=== PATIENT | male | born 1975 | race Caucasian/White ===

== ENCOUNTER 2024-09-05 15:21 | Emergency (ER) | payer SELFPAY ==
--- NOTE | 2024-09-05 15:56 | RAD REPORT ---
EXAM: Chest Single View HISTORY: 48 years Male DYSPNEA COMPARISON: None. FINDINGS: LUNGS/PLEURA: Presumed large left pleural effusion with rightward mediastinal shift. Only a small por tion of the left lung is aerated. The right lung is clear. CARDIAC/MEDIASTINUM: Partially obscured. UPPER ABDOMEN: No significant abnormality. BONES: No acute abnormality. LINES/TUBES/OTHER: N/A IMPRESSION: Whiteout of much of the left lung likely due to a large pleural effusion with mediastinal shift. Some aerated lung is present at the left lung apex. A chest CT is pending.
[2024-09-05] MEDS ORDERED: NA CHLORIDE 0.9% 1,000 ML ONE ×2 (16:10→17:40)
[2024-09-05 16:17] LABS: Absolute Basophils 0.1 K/uL (0-0.5); Absolute Lymphocytes (CBC) 1.8 K/uL (0.7-4.9); Absolute Monocytes 0.8 K/uL (0.1-1.3); Absolute Neutrophil 11.2 K/uL (1.8-8.0); Basophils % 0.7 % (0-1.3); Hematocrit 30.6 % (39.6-49.0); Lymphocytes % 13.3 % (15.3-44.8); MCH 25.5 pg (27.0-35.0); MCHC 32.6 g/dL (32.0-36.0); MCV 78.5 fL (80-100); MPV 6.5 fL (7.6-11.3); Monocytes % 5.8 % (3.3-12.3); Neutrophils % 80.2 % (41.7-73.7); Platelets 644 thou/uL (152-406); Red Cell Distribution Width 15.2 % (12.1-15.2)
[2024-09-05 16:26] LABS: PT Prothrombin Time 18.8 SECONDS (10-13.0); Protime INR 1.69
[2024-09-05 16:34] LABS: ALT/SGPT 36 U/L (16-61); AST/SGOT 27 U/L (15-37); Albumin/Globulin Ratio 0.3 (1.1-1.8); Alkaline Phosphatase 68 U/L (45-117); Anion Gap 10.3 mEq/L (5.0-15.0); BUN Blood Urea Nitrogen 8 mg/dL (7-18); Bicarbonate 29 mEq/L (21-32); Bilirubin Direct 0.4 mg/dL (0-0.2); Bilirubin Indirect, Calculated 0.4 mg/dL (0.2-0.8); Bilirubin Total 0.8 mg/dL (0.2-1.0); Glomerular Filtration Rate 107 ml/min (=/>90); Glucose Level 161 mg/dL (74-106); Magnesium 2.2 mg/dL (1.6-2.4); NT PRO-BNP 299 pg/mL (<125); Potassium 3.3 mEq/L (3.5-5.1); Sodium Level 130 mEq/L (136-145)
[2024-09-05 16:35] LABS: Troponin High Sensitivity < 3.0 pg/mL (<58.9)
[2024-09-05 16:36] LABS: Influenza A Ag Negative; Influenza B Ag Negative; SARS-CoV-2 Antigen Rapid Res Negative (Negative)
--- NOTE | 2024-09-05 17:28 | RAD REPORT ---
Thorax W/ Con CLINICAL INDICATION: Male, 48 years old. SOB TECHNIQUE: Routine CT scan of the chest with intravenous contrast. One or more of the following dose reduction techniques were used: Automated exposure control, adjustment of the mA and/or kV according to patient size, and/or iterative reconstruction. Unless otherwise specified, incidental fi ndings do not require dedicated imaging follow-up. [id number]. COMPARISON: No prior exam. FINDINGS: LOWER NECK: Visualized thyroid gland and soft tissues are normal. LUNGS AND AIRWAYS: Much of the left lower lobe is atelectatic secondary to a complex presumably locul ated pleural effusion..No suspicious and/or stable pulmonary nodules. PLEURA: No pleural effusions. No pneumothorax. MEDIASTINUM AND LYMPH NODES: There is rightward shift of the mediastinum. THORACIC AORTA: No thoracic aortic aneurysm. PULMONARY ARTERIES: Caliber is within normal limits. HEART: Normal heart size. No coronary calcifications.Small pericardial effusion. OSSEOUS STRUCTURES AND CHEST WALL: No fracture or suspicious osseous lesions. UPPER ABDOMEN: No acute abnormalities.Cholelithiasis. Hepatic steatosis. IMPRESSION: Large loculated left pleural effusion with collapse of much of the left lower lobe. This may reflect a parapneumonic effusion and/or empyema.
--- NOTE | 2024-09-05 18:01 | EDPHYS ---
Physician Documentation [facility] Name: Efrain Villalpando Age: 48 yrs Sex: Male : 1975 Arrival Date: 09/05/2024 Time: 15:21 Bed 4 Private MD: ED Physician Los Reynaga HPI: 09/05 15:45 This 48 yrs old Male presents to ER via Wheelchair with complaints of Breathing cp Difficulty, Cough. 15:45 The patient has shortness of breath at rest. Onset: The symptoms/episode began/occurred cp gradually, 1 month(s) ago. Duration: The symptoms are continuous, and are steadily getting worse. Associated signs and symptoms: Pertinent positives: chest pain, non-productive cough, weight loss, Pertinent negatives: fever. Historical: - Allergies: 15:46 No Known Allergies; jb4 - PMHx: 15:46 None; jb4 - PSHx: 15:46 None; jb4 - Immunization history:: Adult Immunizations up to date. - Infectious Disease History:: Denies. - Social history:: Smoking status: Patient denies any tobacco usage or history of. Patient uses alcohol, but reports only rare drinking. ROS: 15:50 Constitutional: Positive for chills, weight loss, Negative for body aches, fever, cp 15:50 Eyes: Negative for injury, pain, redness, and discharge, cp 15:50 ENT: Negative for drainage from ear(s), ear pain, sore throat, difficulty swallowing, difficulty handling secretions, 15:50 Cardiovascular: Positive for chest pain, palpitations, Negative for edema, 15:50 Respiratory: Positive for cough, "sounds productive", shortness of breath, at rest. 15:50 Abdomen/GI: Negative for abdominal pain, vomiting, diarrhea, constipation, 15:50 Neuro: Negative for altered mental status, dizziness, headache, numbness, syncope, near syncope, weakness, 15:50 All other systems are negative, Exam: 15:55 Constitutional: The patient appears in no acute distress, alert, awake, cp non-diaphoretic, non-toxic, well developed, well nourished, uncomfortable, 15:55 Head/Face: Normocephalic, atraumatic. cp 15:55 Eyes: Periorbital structures: appear normal, Conjunctiva: normal, no exudate, no injection, Sclera: no appreciated abnormality, Lids and lashes: appear normal, bilaterally, 15:55 ENT: External ear(s): are unremarkable, Nose: is normal, Mouth: Lips: moist, Oral mucosa: moist, Posterior pharynx: Airway: no evidence of obstruction, patent, 15:55 Neck: ROM/movement: limited range of motion, is not appreciated, Meningeal signs: are not present, 15:55 Chest/axilla: Inspection: normal, Palpation: crepitus, is not appreciated, tenderness, that is mild, of the left lateral anterior chest and left lateral posterior chest, 15:55 Cardiovascular: Rate: tachycardic, Rhythm: regular, Edema: is not appreciated, JVD: is not appreciated, 15:55 Respiratory: the patient does not display signs of respiratory distress, Respirations: labored breathing, that is mild, shallow respirations, that is mild, Breath sounds: decreased breath sounds, that are severe, are heard in the left posterior upper lobe and left posterior lower lobe, stridor, is not appreciated, wheezing: is not appreciated, 15:55 Abdomen/GI: Inspection: abdomen appears normal, Palpation: abdomen is soft and non-tender, in all quadrants, 15:55 Back: pain, that is moderate, of the left scapular area and left subscapular area, ROM is normal, 15:55 Skin: no rash present. 15:55 Neuro: Orientation: to person, place \\T\\ time. Mentation: is normal, Motor: moves all fours, strength is normal, Sensation: is normal, 16:30 ECG was reviewed by the Attending Physician. cp Vital Signs: 15:44 BP 130 / 84; Pulse 138; Resp 36; Temp 99.2(O); Pulse Ox 98% on R/A; Weight 92.08 kg jb4 (R); Height 6 ft. 0 in. (R); Pain 4/10; 17:34 BP 114 / 74; Pulse 123; Resp 36; Pulse Ox 96% on R/A; jb4 18:52 BP 123 / 77; Pulse 123; Resp 21; Pulse Ox 97% on R/A; hb 20:17 BP 105 / 71; Pulse 117; Resp 26; Pulse Ox 100% on 2 lpm NC; cp4 20:52 BP 109 / 72; Pulse 115; Resp 23; Pulse Ox 97% on 2 lpm NC; cp4 21:36 BP 110 / 77; Pulse 115; Resp 21; Pulse Ox 99% on 2 lpm NC; cp4 15:44 Body Mass Index 27.53 (92.08 kg, 182.88 cm) jb4 15:44 Pain Scale: Adult jb4 MDM: 15:37 Medical Screening Exam initiated cp 16:00 Differential diagnosis: Chronic Obstructive Pulmonary Disease pneumonia, Pneumothorax cp pulmonary edema, Pulmonary Embolism Sepsis. 18:00 Data reviewed: vital signs, nurses notes, lab test result(s), EKG, radiologic studies, cp CT scan, plain films, I have discussed the patient's presentation/case with the attending Emergency Department Physician; and as a result, I will transfer patient. 18:00 Antibiotic administration: Zosyn. cp 18:45 ED course: consult with DR Brown, [facility], will be accepting physician. 19:33 Management of patient was discussed with the following: Brood Station Manager: DR Bolivar who sees cp patient in ED for placement of chest tube. 09/05 15:38 Order name: Basic Metabolic Panel; Complete Time: 16:56 09/05 17:18 Interpretation: Normal except: NA 130; K 3.3; CL 94; GLUC 161; CA 7.9. 09/05 15:38 Order name: CBC with Diff; Complete Time: 16:31 09/05 17:18 Interpretation: Normal except: WBC 13.90; RBC 3.90; HGB 10.0; HCT 30.6; MCV 78.5; MCH cp 25.5; PLT 644; MPV 6.5; CJ% 80.2; LYM% 13.3; NEUT A 11.2. 09/05 15:38 Order name: LFT's; Complete Time: 16:56 09/05 17:18 Interpretation: Normal except: BILID 0.4; ALB 2.0; GLOB 6.0; A/G 0.3. 09/05 15:38 Order name: Magnesium; Complete Time: 16:56 cp 09/05 15:38 Order name: NT PRO-BNP; Complete Time: 16:56 09/05 18:40 Interpretation: Reviewed. 09/05 15:38 Order name: PT-INR; Complete Time: 16:31 09/05 18:41 Interpretation: Reviewed. cp 09/05 15:38 Order name: Troponin HS; Complete Time: 16:56 cp 09/05 18:40 Interpretation: Reviewed. cp 09/05 15:38 Order name: COVID-19 Ag + Flu A+B Ag; Complete Time: 16:56 cp 09/05 18:41 Interpretation: Reviewed. cp 09/05 15:39 Order name: Blood Culture Adult (2) cp 09/05 15:39 Order name: Lactate w/ 2H reflex if indic.; Complete Time: 16:56 cp 09/05 15:39 Order name: Urinalysis w/ reflexes; Complete Time: 19:04 cp 09/05 15:34 Order name: Chest Single View XRAY; Complete Time: 16:13 jl7 09/05 16:15 Order name: CT Chest W/ Con; Complete Time: 17:43 cp 09/05 18:29 Interpretation: Report reviewed. cp 09/05 19:39 Order name: Chest Single View XRAY; Complete Time: 21:40 vk 09/05 15:38 Order name: Cardiac monitoring; Complete Time: 17:34 cp 09/05 15:38 Order name: EKG - Nurse/Tech; Complete Time: 17:34 cp 09/05 15:38 Order name: IV Saline Lock; Complete Time: 16:00 cp 09/05 15:38 Order name: Labs collected and sent; Complete Time: 16:00 cp 09/05 15:38 Order name: O2 Per Protocol; Complete Time: 16:00 cp 09/05 15:38 Order name: O2 Sat Monitoring; Complete Time: 16:00 cp 09/05 15:39 Order name: Vital Signs; Complete Time: 16:00 cp EC:30 Rate is 131 beats/min. Rhythm is regular. DC interval is normal. QRS interval is cp normal. QT interval is normal. Interpreted by me. Reviewed by me. Administered Medications: 15:47 CANCELLED (Physician Discretion): DuoNeb Nebulize (2.5 mg - 0.5 mg) 3 ml Nebulizer once cp 16:13 Drug: NS 0.9% IV 1000 ml IV at 1000 ml once; to be given as a bolus over 60 minutes jb4 Route: IV; Rate: 1000 ml; Site: right antecubital; 17:15 Follow up: Response: No adverse reaction; IV Status: Completed infusion; IV Intake: jb4 1000ml 17:43 Drug: NS 0.9% IV 1000 ml IV at 1000 ml once; to be given as a bolus over 60 minutes jb4 Route: IV; Rate: 1000 ml; Site: right antecubital; 20:13 Follow up: IV Status: Completed infusion cp4 18:51 Drug: Potassium PO Effervescent Tablet 50 mEq PO once; dissolve in 4 ounces of water or hb juice Route: PO; 20:14 Follow up: Response: No adverse reaction cp4 18:51 Drug: Piperacillin-Tazobactam IVPB 3.375 grams IVPB once over 60 mins; (mix in NS 100 hb mL) Route: IVPB; Infused Over: 60 mins; Site: right antecubital; 20:13 Follow up: Response: No adverse reaction; IV Status: Completed infusion cp4 18:51 Drug: Ketorolac IVP 15 mg IVP once Route: IVP; Site: right antecubital; hb 20:14 Follow up: Response: No adverse reaction cp4 20:06 Drug: Lidocaine Infiltration (2 %) 20 ml 5 ml Infiltration once; with epinephrine cp4 {Note: Administered by Dr. Bolivar.} Volume: 5 ml; Route: Infiltration; 20:17 Drug: vancoMYCIN IVPB 1.5 grams IVPB at calculated rate once Route: IVPB; Rate: cp4 calculated rate; Site: left antecubital; 21:56 Follow up: IV Status: Infusion continued upon transfer cp4 Disposition Summary: 09/05/24 18:00 Transfer Ordered Notes: Transfer Location: [facility] cp Reason: Higher level of care cp Condition: Stable cp Problem: new cp Symptoms: have improved cp Accepting Physician: DR Brown(09/05/24 21:55) cp4 Diagnosis - Pleural effusion in other conditions classified elsewhere - left cp - Dyspnea cp Forms: - Medication Reconciliation Form cp - SBAR form cp Addendum: 09/07/2024 07:01 Co-signature as Attending Physician, Los Reynaga MD I reviewed the patient's care r n provided by the Advanced Practice Provider and agree with the diagnosis and treatment plan. Signatures: Dispatcher [employer] EDKS Los Reynaga MD MD rn Jax Mendez, MANAGER OF APPLICATIONS DEVELOPMENT-C MANAGER OF APPLICATIONS DEVELOPMENT-Cla1 Beto Malloy PA PA cp Baxter Sofía, RN RN Mike Beard, RN RN jb4 Cleopatra Marti cp4 Corrections: (The following items were deleted from the chart) 09/05 15:39 15:39 BASIC METABOLIC PANEL+C.LAB.BRZ ordered. EDMS EDMS 15:39 15:39 CBC+H.LAB.BRZ ordered. EDMS EDMS 15:39 15:39 HEPATIC FUNCTION+C.LAB.BRZ ordered. EDMS EDMS 15:39 15:39 MAGNESIUM+C.LAB.BRZ ordered. EDMS EDMS 15:39 15:39 PROBNP+C.LAB.BRZ ordered. EDMS EDMS 15:39 15:39 PROTIME (+INR)+COAG.LAB.BRZ ordered. EDMS EDMS 15:39 15:39 Troponin High Sensitivity+C.LAB.BRZ ordered. EDMS EDMS 15:39 15:39 COVID-19 Ag + Flu A+B Ag+I.LAB.BRZ ordered. EDMS EDMS 15:40 15:40 BLOOD CULTURE*+BA.LAB.BRZ ordered. EDMS EDMS 15:40 15:40 LACTATE+C.LAB.BRZ ordered. EDMS EDMS 15:40 15:40 Urinalysis+U.LAB.BRZ ordered. EDMS EDMS 15:47 15:38 DuoNeb Nebulize (2.5 mg - 0.5 mg) 3 ml Nebulizer once ordered. cp cp 16:22 15:40 Chest For PE Angio+CT.RAD.BRZ ordered. EDMS EDMS 16:59 15:39 Accucheck ordered. cp jb4 21:46 18:00 doctor cp cp 21:55 21:46 DR Brown cp cp4
--- NOTE | 2024-09-05 18:01 | ER ---
Nurse's Notes [facility] Name: Efrain Villalpando Age: 48 yrs Sex: Male : 1975 Arrival Date: 09/05/2024 Time: 15:21 Bed 4 Private MD: Diagnosis: Pleural effusion in other conditions classified elsewhere-left;Dyspnea Presentation: 09/05 15:44 Chief complaint: Patient states: I have shortness of breath and was seen at next level j[facility]4 urgent care and was sent here. Coronavirus screen: At this time, the client does not indicate any symptoms associated with coronavirus-19. Ebola Screen: No symptoms or risks identified at this time. Initial Sepsis Screen: Does the patient meet any 2 criteria? RR > 20 per min. HR > 90 bpm. Yes Does the patient have a suspected source of infection? No. Patient's initial sepsis screen is negative. Risk Assessment: Do you want to hurt yourself or someone else? Patient reports no desire to harm self or others. Onset of symptoms was September 05, 2024. Transition of care: patient was not received from another setting of care. 15:44 Method Of Arrival: Wheelchair jb4 15:44 Acuity: ASHLEY 2 jb4 Historical: - Allergies: 15:46 No Known Allergies; jb4 - PMHx: 15:46 None; jb4 - PSHx: 15:46 None; jb4 - Immunization history:: Adult Immunizations up to date. - Infectious Disease History:: Denies. - Social history:: Smoking status: Patient denies any tobacco usage or history of. Patient uses alcohol, but reports only rare drinking. Screenin:35 [facility] ED Fall Risk Assessment (Adult) History of falling in the last 3 months, cp4 including since admission No falls in past 3 months (0 pts) Confusion or Disorientation No (0 pts) Intoxicated or Sedated No (0 pts) Impaired Gait No (0 pts) Mobility Assist Device Used No (0 pt) Altered Elimination No (0 pt) Score/Fall Risk Level 0 - 2 = Low Risk Oriented to surroundings, Maintained a safe environment, Assessed \T\ reinforced patient's understanding of fall precautions, Hourly rounding (assess needs \T\ fall precautionary measures) done. Abuse screen: Denies threats or abuse. Denies injuries from another. Nutritional screening: No deficits noted. Tuberculosis screening: No symptoms or risk factors identified. Assessment: 16:00 General: Appears in no apparent distress. comfortable, Behavior is calm, cooperative, jb4 appropriate for age. Pain: Complains of pain in chest Pain does not radiate. Pain currently is 5 out of 10 on a pain scale. Neuro: Level of Consciousness is awake, alert, obeys commands, Oriented to person, place, time, situation. Cardiovascular: Patient's skin is warm and dry. Respiratory: Airway is patent Respiratory effort is even, labored, Respiratory pattern is symmetrical, tachypnea. Derm: Skin is intact, Skin is pink, warm \T\ dry. Musculoskeletal: Circulation, motion, and sensation intact. Range of motion: intact in all extremities. 17:45 Reassessment: Pt awake and alert, respirations continue to be labored, and tachypneic. jb4 Pt given ice chips per request. 18:52 Reassessment: No changes from previously documented assessment. Patient and/or family hb updated on plan of care and expected duration. Pain level reassessed. Vital Signs: 15:44 BP 130 / 84; Pulse 138; Resp 36; Temp 99.2(O); Pulse Ox 98% on R/A; Weight 92.08 kg jb4 (R); Height 6 ft. 0 in. (R); Pain 4/10; 17:34 BP 114 / 74; Pulse 123; Resp 36; Pulse Ox 96% on R/A; jb4 18:52 BP 123 / 77; Pulse 123; Resp 21; Pulse Ox 97% on R/A; hb 20:17 BP 105 / 71; Pulse 117; Resp 26; Pulse Ox 100% on 2 lpm NC; cp4 20:52 BP 109 / 72; Pulse 115; Resp 23; Pulse Ox 97% on 2 lpm NC; cp4 21:36 BP 110 / 77; Pulse 115; Resp 21; Pulse Ox 99% on 2 lpm NC; cp4 15:44 Body Mass Index 27.53 (92.08 kg, 182.88 cm) jb4 15:44 Pain Scale: Adult jb4 ED Course: 15:28 Patient arrived in ED. cj3 15:29 Beto Malloy PA is PHCP. cp 15:29 Los Reynaga MD is Attending Physician. cp 15:43 Radiology exam delayed due to lab results not completed at this time. (BUN/Creatinine) sj IV insertion attempt and/or patient not having appropriate IV at this time. 15:44 Chest Single View XRAY In Process Unspecified. EDMS 15:44 Mike Beard, RN is Primary Nurse. jb4 15:46 Triage completed. jb4 15:46 Arm band placed on right wrist. jb4 16:00 Troponin HS Sent. jb4 16:00 PT-INR Sent. jb4 16:00 NT PRO-BNP Sent. jb4 16:00 Magnesium Sent. jb4 16:00 LFT's Sent. jb4 16:00 CBC with Diff Sent. jb4 16:00 Basic Metabolic Panel Sent. jb4 16:00 Lactate w/ 2H reflex if indic. Sent. jb4 16:00 Blood Culture Adult (2) Sent. jb4 16:00 Inserted saline lock: 18 gauge in right antecubital area, using aseptic technique. jb4 Blood collected. 16:14 COVID-19 Ag + Flu A+B Ag Sent. jb4 17:14 CT Chest W/ Con In Process Unspecified. EDMS 18:51 Urinalysis w/ reflexes Sent. hb 19:56 Chest Single View XRAY In Process Unspecified. EDMS 20:18 Assist provider with chest tube insertion with 20 Fr. in left Tray was set up. Attached cp4 to pleur-[employer]. Chest tube inserted by Hector Bolivar MD Placement verified by CXR, Dressed with foam tape, Patient tolerated well. 20:20 Inserted saline lock: 20 gauge in left antecubital area, using aseptic technique. cp4 Flushed with 10 mL NS 21:35 Placed in gown. Bed in low position. Call light in reach. Side rails up X 1. Provided cp4 Education on: Procedure Consent. 21:41 initiated transfer with [facility] spoke with maverick Dacosta patient was accepted to [facility] Rm 2106 vk per transfer center to Dr. Bowen\T\[id number] report number given [phone], initiated transport with EMS patient was accepted. Administered Medications: 15:47 CANCELLED (Physician Discretion): DuoNeb Nebulize (2.5 mg - 0.5 mg) 3 ml Nebulizer once cp 16:13 Drug: NS 0.9% IV 1000 ml IV at 1000 ml once; to be given as a bolus over 60 minutes jb4 Route: IV; Rate: 1000 ml; Site: right antecubital; 17:15 Follow up: Response: No adverse reaction; IV Status: Completed infusion; IV Intake: jb4 1000ml 17:43 Drug: NS 0.9% IV 1000 ml IV at 1000 ml once; to be given as a bolus over 60 minutes jb4 Route: IV; Rate: 1000 ml; Site: right antecubital; 20:13 Follow up: IV Status: Completed infusion cp4 18:51 Drug: Potassium PO Effervescent Tablet 50 mEq PO once; dissolve in 4 ounces of water or hb juice Route: PO; 20:14 Follow up: Response: No adverse reaction cp4 18:51 Drug: Piperacillin-Tazobactam IVPB 3.375 grams IVPB once over 60 mins; (mix in NS 100 hb mL) Route: IVPB; Infused Over: 60 mins; Site: right antecubital; 20:13 Follow up: Response: No adverse reaction; IV Status: Completed infusion cp4 18:51 Drug: Ketorolac IVP 15 mg IVP once Route: IVP; Site: right antecubital; hb 20:14 Follow up: Response: No adverse reaction cp4 20:06 Drug: Lidocaine Infiltration (2 %) 20 ml 5 ml Infiltration once; with epinephrine cp4 {Note: Administered by Dr. Bolivar.} Volume: 5 ml; Route: Infiltration; 20:17 Drug: vancoMYCIN IVPB 1.5 grams IVPB at calculated rate once Route: IVPB; Rate: cp4 calculated rate; Site: left antecubital; 21:56 Follow up: IV Status: Infusion continued upon transfer cp4 Medication: 21:35 VIS not applicable for this client. cp4 Intake: 17:15 IV: 1000ml; Total: 1000ml. jb4 Outcome: 18:00 ER care complete, transfer ordered by MD. cp 21:50 Transferred by ground EMS to [facility], Transfer form completed. cp4 X-rays sent w/ patient. 21:50 Condition: stable 21:50 Instructed on the need for transfer, 21:55 Patient left the ED. cp4 Signatures: Dispatcher [employer] EDDE Mali Bourne Corey, PA PA cp Sofía Marinelli RN RN hb Bryson, James, RN RN jb4 Cleopatra Marti cp4 Chantel Barbour Celeste cj3
[2024-09-05] MEDS ORDERED: POTASSIUM 25 MEQ EFFERV TAB ONE (18:15)
[2024-09-05] MEDS ORDERED: NA CHLORIDE 0.9% 100 ML ONE (18:15)
[2024-09-05] MEDS ORDERED: KETOROLAC 30 MG/ML INJ ONE (18:15)
[2024-09-05] MEDS ORDERED: PIPERACIL/TAZO 3.375 GM VIAL IV ONE (18:16)
[2024-09-05 18:58] LABS: Specific Gravity > 1.030 (1.005-1.030); Sqamous Epithelial <5 /HPF (None Seen); Urine Bacteria <20 /HPF (<20); Urine Bilirubin NEGATIVE (Negative); Urine Blood Negative (Negative); Urine Clarity Clear (Clear); Urine Color Yellow (Yellow); Urine Culture Reflex Order NOT NEEDED; Urine Glucose NEGATIVE (Negative); Urine Ketones NEGATIVE (Negative); Urine Microscopic Reflex YN ORDER UMIC; Urine Mucus Slight /HPF (None Seen); Urine Nitrite NEGATIVE (Negative); Urine Protein TRACE (Negative); Urine RBC <5 /HPF (None Seen); Urine Urobilinogen 4+ (Over) (Normal); Urine WBC <5 /HPF (<5); Urine WBC Clump Rare /HPF (None Seen); Urine Yeast (Budding) Trace /HPF (None Seen)
[2024-09-05] MEDS ORDERED: LIDOCAINE 2% W/EPI 1:200,000 MPF 20 ML VIAL IM ONE (19:33)
[2024-09-05] MEDS ORDERED: LIDOCAINE 1% 20 ML MDV ONE (19:33)
--- NOTE | 2024-09-05 19:50 | P.OP ---
Preoperative diagnosis: LEFT Empyema with mediastinal shift Postoperative diagnosis: LEFT Empyema with mediastinal shift Primary procedure: Placement of LEFT Thoracic Chest Tube Anesthesia: 2% lidocaine Estimated blood loss: <2cc Specimen: cultures Findings: empyema 500cc returned Drain(s): Other (20Fr chest tube) Transferred to: Other (ER) Condition: Serious
--- NOTE | 2024-09-05 20:00 | RAD REPORT ---
EXAM:Chest Single View HISTORY: CHEST TUBE COMPARISON: None IMPRESSION: Interval placement of a left-sided chest tube with minimal decrease in size of the loculated left ple ural effusion. An air-fluid level is present at the upper portion of the collection likely as a result of drainage of some of the fluid. The chest tube terminates near the midline around the T8 lev el.
[2024-09-05] MEDS ORDERED: VANCOMYCIN 1 GM/VIAL ONE (20:08)
[2024-09-05] MEDS ORDERED: VANCOMYCIN 500 MG/VIAL ONE (20:08)
[2024-09-05] MEDS ORDERED: NA CHLORIDE 0.9% 500 ML ONE (20:09)
[2024-09-05 22:24] VITALS: TEMP 99.2
[2024-09-05 22:30] VITALS: BP 110/77; O2SAT 99
--- NOTE | 2024-09-06 00:21 | OP ---
Date of Procedure: 09/05/2024 Surgeon: Hector Bolivar MD, Brief History Of Present Illness: The patient is a 48-year-old male who came to the emergency room w ith concern of recent respiratory infection, who had a CT scan, which showed a loculated pleural effu giovani and possible empyema with possible mediastinal shift. As such, he was deemed appropriate for tr ansfer to [facility] care; however, accepting physician requested placement of a chest tube ___ for stabilization of the patient prior to transfer. As such, I come in for an emergency procedur e to place a left thoracostomy tube. Preoperative Diagnosis: Left-sided impairment with mediastinal shift. Postoperative Diagnosis: Left-sided impairment with mediastinal shift. Procedure: Placement of left thoracic chest tube. Anesthesia: 2% lidocaine utilized. Estimated Blood Loss: 2 cc. Specimens: Cultures. Findings: Empyema, approximately 500 cc returned. A 20-Macanese chest tube was placed. The patient remained in the ER in serious condition throughout the procedure. Procedure In Detail: After informed consent was obtained, the patient was prepped and draped in usua l sterile fashion and after adequate anesthesia was achieved, anesthetized the area of the posterior axillary line down to subcutaneous tissues going over the rib. I anesthetized the entire tract, ente ring the chest cavity to discover empyema as a greenish yellow purulent fluid was immediately encount ered. At this point, I placed the wire into the tract and made an incision over the wire tract. At this point, I then performed sequential dilatation using Seldinger technique, ultimately placing a 20 -Macanese catheter over the rib into the collection. Immediately encountered was approximately 400 to 500 cc of empyema from the left chest cavity and the patient had significant symptomatic improvement. At this point, I secured the chest tube to the area and a sterile dressing was placed over top. Th e patient tolerated the procedure without incident or complication, will be transferred to [facility] center of care. All counts were correct at the end of the case. SALLY/MODL Voice ID: [id number] Report ID: [id number]
--- NOTE | 2024-09-06 17:46 | CON ---
Date of Consultation: 09/05/2024 Brief History Of Present Illness: The patient is a 48-year-old male who came in with complaints of s hortness of breathing, progressive worsening breathing, and significant unrelenting cough. These beg an approximately 1 month ago. He thinks perhaps he may have been exposed to COVID or some other infe ctious disease, at that point, as he was around people who were by report having coughing issues. Hi s cough got progressively worse, and as such, he could not lay flat any longer. His breathing got wo rse. He had fever, chills, sweats, and became very uncomfortable and could not lie flat. He began t o tripod and sit up. During the examination and during the discussion, he had difficulty breathing. As such, he was placed on nasal cannula, but he states this made him cough and he pulled it off duri ng the examination as well. His saturations were okay in the mid 90s, during my examination. I am c onsulted for an emergent chest tube as the patient had findings on CT of a possible empyema in the le thoracic cavity. Past Medical History: Denies. Past Surgical History: Denies. Allergies: NO KNOWN DRUG ALLERGIES. Medications: None. Social History: He denies smoking, alcohol, or recreational drug use other than occasional social dr inking. Review of Systems: A 10-point review of systems other than HPI, denies. Physical Examination: At the time of my examination was limited to the head, neck, and chest area. He appeared diaphoretic . He had very poor dentition. His mucous membranes are moist. His oropharynx is clear. He had dawood e tripoding and he was using accessory muscles of respiration during the examination. He had decreas ed breath sounds on the left significantly and had a fairly foul odor from his breath and from his br eathing as well consistent with the almost purulent abscess type material. Imaging: As such, he had a CT scan performed of the chest, which is officially read as a large locul ated left pleural effusion with collapse of much of the left lower lobe, may reflect a parapneumonic effusion and/or empyema. I personally reviewed the CT and found it to be a large collection consiste nt with an empyema. He did have some evidence of perhaps early mediastinal shift, and as such, I opt ed to place an emergent chest tube in this situation. I discussed the risks, benefits, and alternati ves with the patient as well. Laboratory Data: Revealed a white blood cell count of 13.9, hemoglobin is 10, hematocrit 30.6, plate let count was 644. His PT 18.8, INR 1.69, sodium 130, potassium 3.3, chloride 94, carbon dioxide 29, BUN 8, creatinine 0.86, glucose 161, lactic acid 1.7, direct bilirubin was 0.4, AST 27, ALT 36, nikhil line phosphatase 68. His urine had 4+ urobilinogen, otherwise trace budding yeast and trace total pr otein. Influenza A/B were negative. COVID Rapid was negative. Assessment And Plan: This is a 48-year-old male who comes in with a large left fluid collection in t he chest, likely empyema and worsening coughing and symptoms of shortness of breath with the possible mediastinal shift. 1. Continue IV management and antibiotic coverage. 2. I have discussed risks, benefits, and alternatives of placement of a left thoracic tube/chest tube , including but not limited to, bleeding, infection, damage to surrounding tissues including the lung s, the heart, the great blood vessels and internal tissues and structures, heart attacks, blood clots , strokes, or other unforeseen complications in the jil-procedure period. The patient displayed und erstanding of above stated plan. All questions were answered and agreed to proceed as indicated. We will place a left thoracic chest tube under urgent conditions and follow up with chest x-ray. SALLY/KAREN Voice ID: [id number] Report ID: [id number]
--- NOTE | 2024-09-08 11:27 | EKG ---
Test Date: 2024-09-05 Test Time: 16:23:56 Retoucher: JACQUELINE MEASUREMENT RESULTS: Intervals: Rate: 131 MD: 120 QRSD: 86 QT: 320 QTc: 472 Creola: P: 53 MD: 120 QRS: 67 T: -3 INTERPRETIVE STATEMENTS: Sinus tachycardia T wave abnormality, consider inferior ischemia Abnormal ECG No previous ECG available for comparison Electronically Signed On 09-08-24 11:21:56 CDT by Javy Bowman
== END 2024-09-05 21:55 | disposition short-term general hospital (02) ==
LOC: ER 15:21
DX: J90 Pleural effusion, not elsewhere classified (principal); R07.9 Chest pain, unspecified; R05.9 Cough, unspecified; Z11.52 Encounter for screening for COVID-19
CPT/HCPCS: 36415; 71045; 71260; 80048; 80076; 81001; 83605; 83735; 83880; 84484; 85025; 85610; 87040; 87428; 93005; 99285; J2003; J2543; J3370; J7030; J7040; Q9967